=== PATIENT | female | born 1960 | race African-American/Black ===

== ENCOUNTER 2022-04-15 00:09 | Inpatient (IN) | payer OTHER ==
[2022-04-15] MEDS ORDERED: Magnesium 2 GM/50 ML BAG (IN WATER) ONE (00:31)
[2022-04-15] MEDS ORDERED: Nitroglycerin 50 MG/250 ML BOT 0 ML ONE (00:31)
[2022-04-15] MEDS ORDERED: Azithromycin 500 MG VIAL ONE (00:31)
[2022-04-15] MEDS ORDERED: cefTRIAXone\\ROCEPHIN 1 GM VIAL ONE (00:31)
[2022-04-15] MEDS ORDERED: Aspirin Chewable 81 MG TAB ONE (00:31)
[2022-04-15 00:47] LABS: #Basophils 0.1 thou/uL (0.0-0.2); #Eosinphils 0.2 thou/uL (0.0-0.7); #Lymphocytes 2.3 thou/uL (1.20-3.40); #Monocytes 0.7 thou/uL (0.11-0.59); #Neutrophils 5.6 thou/uL (1.40-6.50); %Basophils 0.6 % (0.0-1.0); %Eosinophils 1.9 % (0.0-10.0); %Lymphocytes 25.8 % (21.0-51.0); %Monocytes 7.7 % (0.0-10.0); Hemoglobin 14.9 g/dL (12.0-16.0); Mean Corpuscular HGB CONC 33.3 g/dL (32.0-36.0); Mean Corpuscular Hemoglobin 35.9 pg (27.0-31.0); Mean Platelet Volume 10.3 fL (7.4-10.4); Platelet Count 144 thou/uL (130-400); RBC Distribution Width 12.4 % (11.5-14.5); Red Blood Cell (RBC) Count 4.16 mill/uL (4.20-5.40); White Blood Cell (WBC) Count 8.7 thou/uL (4.8-10.8)
[2022-04-15 01:04] LABS: ALT (SGPT) 9 U/L (8-55); AST (SGOT) 26 U/L (5-34); Albumin 3.9 g/dL (3.4-4.8); Alkaline Phosphatase 95 U/L (40-110); Anion Gap 18 mmol/L (10-20); BUN (Urea Nitrogen) 26 mg/dL (9.8-20.1); CK (CPK) 115 U/L (29-168); Calc. Creatinine Clearance 0 mL/min (70-130); Carbon Dioxide 17 mmol/L (23-31); Chloride 101 mmol/L (98-107); Estimated GFR 25; Globulin 4.2 g/dL (2.4-3.5); Glucose 141 mg/dL (80-115); Lipase 44 U/L (8-78); Potassium 3.9 mmol/L (3.5-5.1); Protein, Total 8.1 g/dL (5.8-8.1); Sodium 132 mmol/L (136-145)
[2022-04-15 01:15] LABS: Bacteria/HPF None Seen HPF (None Seen); Bilirubin Negative (Negative); Blood, Urine 1+ (Negative); Clarity Clear (Clear); Glucose, Urine (Dipstick) Normal (Negative); Ketone, Urine Negative (Negative); Leukocyte Negative Leu/uL (Negative); Nitrite Negative (Negative); Protein, Urine (Dipstick) 300 mg/dL (Neg-Trace); RBC/HPF 0-3 HPF (0-3); Squamous Epithelial None Seen HPF (0-3); Urobilinogen Normal mg/dL (Less than 2); WBC/HPF 0-3 HPF (0-3); pH, Urine 6.5 (5.0-9.0)
[2022-04-15 01:18] LABS: Bilirubin, Total 0.5 mg/dL (0.2-1.2)
[2022-04-15 01:26] LABS: CKMB 2.8 ng/mL (0-6.6)
[2022-04-15 02:22] LABS: SARS-CoV-2 NAA Rapid Test Not Detected (NotDetected)
[2022-04-15] MEDS ORDERED: HYDROcodone/Acetaminophen 5/325 mg Tablet PO PRN (02:22)
[2022-04-15] MEDS ORDERED: Nitroglycerin 0.4 MG TAB (25 Tab Bottle) SL PRN (02:22)
[2022-04-15] MEDS ORDERED: Zolpidem Tartrate 5 MG TAB PO PRN (02:22)
[2022-04-15] MEDS ORDERED: Acetaminophen 325 MG TAB PO PRN (02:22)
[2022-04-15] MEDS ORDERED: Bisacodyl 5 MG TAB PO PRN (02:22)
[2022-04-15] MEDS ORDERED: Ondansetron PF 4 MG/2 ML Vial IVP PRN (02:22)
[2022-04-15] MEDS ORDERED: Morphine 2 MG/ML VIAL SLOW IVP PRN (02:27)
[2022-04-15] MEDS ORDERED: hydrALAZINE 20 MG/ML VIAL SLOW IVP PRN (02:27)
[2022-04-15] MEDS ORDERED: Aspirin Chewable 81 MG TAB PO SCH (02:30)
[2022-04-15 03:13] VITALS: BMI 34.9
[2022-04-15] MEDS: Furosemide 40 MG/4 ML VIAL IVP SCH ×2 (03:30→20:00)
[2022-04-15 03:39] LABS: #Basophils 0.1 thou/uL (0.0-0.2); #Lymphocytes 0.6 thou/uL (1.20-3.40); #Monocytes 0.2 thou/uL (0.11-0.59); #Neutrophils 7.8 thou/uL (1.40-6.50); %Basophils 0.6 % (0.0-1.0); %Eosinophils 0.3 % (0.0-10.0); %Lymphocytes 6.7 % (21.0-51.0); %Neutrophils 90.4 % (42.0-75.0); Hemoglobin 13.6 g/dL (12.0-16.0); Mean Corpuscular HGB CONC 33.1 g/dL (32.0-36.0); Mean Corpuscular Hemoglobin 35.7 pg (27.0-31.0); Mean Platelet Volume 10.3 fL (7.4-10.4); Platelet Count 125 thou/uL (130-400); RBC Distribution Width 12.3 % (11.5-14.5); Red Blood Cell (RBC) Count 3.82 mill/uL (4.20-5.40); White Blood Cell (WBC) Count 8.6 thou/uL (4.8-10.8)
[2022-04-15 03:53] LABS: Lactic Acid 1.5 mmol/L (0.5-2.2)
[2022-04-15 03:58] LABS: ALT (SGPT) 7 U/L (8-55); AST (SGOT) 21 U/L (5-34); Albumin 3.5 g/dL (3.4-4.8); Alkaline Phosphatase 84 U/L (40-110); Anion Gap 16 mmol/L (10-20); BUN (Urea Nitrogen) 26 mg/dL (9.8-20.1); Bilirubin, Total 0.4 mg/dL (0.2-1.2); Calc. Creatinine Clearance 38 mL/min (70-130); Calcium 8.8 mg/dL (7.8-10.44); Carbon Dioxide 19 mmol/L (23-31); Chloride 104 mmol/L (98-107); Estimated GFR 25; Globulin 3.7 g/dL (2.4-3.5); Glucose 155 mg/dL (80-115); Magnesium 2.6 mg/dL (1.6-2.6); Potassium 4.5 mmol/L (3.5-5.1); Protein, Total 7.2 g/dL (5.8-8.1); Sodium 134 mmol/L (136-145)
[2022-04-15 04:01] LABS: Troponin I 0.161 ng/mL (< 0.028)
[2022-04-15] MEDS ORDERED: Nitroglycerin 2% Ointment 1 INCH/1 GM Packet TOP SCH (06:00)
[2022-04-15 06:05] LABS: Creatinine, Urine 24.8 mg/dL (47-110)
[2022-04-15 07:00] LABS: Troponin I 0.162 ng/mL (< 0.028)
[2022-04-15] MEDS ORDERED: Clopidogrel Bisulfate 75 MG TAB PO SCH (09:00)
[2022-04-15] MEDS ORDERED: Enoxaparin Sodium 40 MG/0.4 ML SYRINGE SC SCH (09:00)
[2022-04-15] MEDS ORDERED: Amlodipine 5 MG TAB PO SCH (09:00)
[2022-04-15] MEDS: Famotidine 20 MG TAB PO SCH (09:27)
[2022-04-15 10:21] LABS: HBSAg Index 0.26 S/CO (0-0.99); Hep B Surf Ag Non-Reactive S/CO (NonReactive); Hep C IgG Ab Non-Reactive (NonReactive); Hep C Index 0.11 S/CO (0-0.79)
[2022-04-15] MEDS ORDERED: Communication Order-Pharmacy FS SCH (13:15)
[2022-04-15] MEDS: hydrALAZINE 25 MG TAB PO SCH ×2 (14:26→20:37)
[2022-04-15] MEDS: Isosorbide Mononitrate 20 MG TAB PO SCH ×2 (14:27→20:37)
[2022-04-15] MEDS: Atorvastatin Calcium 40 MG TAB PO SCH (20:37)
[2022-04-16] MEDS ORDERED: cefTRIAXone\\ROCEPHIN 1 GM in Sodium Chloride 0.9% 100 ML IVPB SCH (01:00)
[2022-04-16] MEDS: Furosemide 40 MG/4 ML VIAL IVP SCH (01:57)
[2022-04-16 04:17] LABS: Anion Gap 12 mmol/L (10-20); BUN (Urea Nitrogen) 36 mg/dL (9.8-20.1); Calc. Creatinine Clearance 33 mL/min (70-130); Calcium 8.2 mg/dL (7.8-10.44); Carbon Dioxide 22 mmol/L (23-31); Cardiac Risk 2.7 (Less than 4.5); Chloride 104 mmol/L (98-107); Cholesterol 187 mg/dl (< 200 Desired); Estimated GFR 21; Glucose 101 mg/dL (80-115); HDL Cholesterol 70 mg/dL (>60 Neg Risk); LDL Cholesterol, Calculated 100 mg/dL; Sodium 134 mmol/L (136-145); Triglycerides 84 mg/dL (Less than 150)
[2022-04-16] MEDS: Sodium Chloride 0.9% 1,000 ML IV SCH ×2 (05:55→16:41)
[2022-04-16] MEDS ORDERED: Amlodipine 10 MG TAB PO SCH (09:00)
[2022-04-16] MEDS: Aspirin 81 mg Enteric Coated Tablet PO SCH (09:23)
[2022-04-16] MEDS: Isosorbide Mononitrate 20 MG TAB PO SCH ×3 (09:24→20:22)
[2022-04-16] MEDS: Carvedilol 6.25 MG TAB PO SCH ×2 (09:24→16:42)
[2022-04-16] MEDS: Famotidine 20 MG TAB PO SCH (09:24)
[2022-04-16] MEDS: hydrALAZINE 25 MG TAB PO SCH ×3 (09:24→20:22)
[2022-04-16 12:48] LABS: ANA Symphony (Qualitative) Negative (Negative); ANA Symphony (Quantitative) 0.4 Ratio (< 0.7 Negative)
[2022-04-16] MEDS: Sodium Bicarbonate Tab 325 MG TAB PO SCH ×2 (16:42→20:22)
[2022-04-16] MEDS: Atorvastatin Calcium 40 MG TAB PO SCH (20:22)
[2022-04-17 05:28] LABS: Anion Gap 13 mmol/L (10-20); BUN (Urea Nitrogen) 38 mg/dL (9.8-20.1); Calc. Creatinine Clearance 30 mL/min (70-130); Calcium 8.1 mg/dL (7.8-10.44); Carbon Dioxide 21 mmol/L (23-31); Chloride 104 mmol/L (98-107); Estimated GFR 19; Glucose 107 mg/dL (80-115); Potassium 3.9 mmol/L (3.5-5.1); Sodium 134 mmol/L (136-145)
[2022-04-17] MEDS: Carvedilol 6.25 MG TAB PO SCH (08:11)
[2022-04-17] MEDS: Sodium Bicarbonate Tab 325 MG TAB PO SCH (08:12)
[2022-04-17] MEDS: hydrALAZINE 25 MG TAB PO SCH (08:12)
[2022-04-17] MEDS: Isosorbide Mononitrate 20 MG TAB PO SCH (08:12)
[2022-04-17] MEDS: Aspirin 81 mg Enteric Coated Tablet PO SCH (08:12)
[2022-04-17] MEDS: Famotidine 20 MG TAB PO SCH (08:13)
[2022-04-17] MEDS ORDERED: Furosemide 20 MG TAB PO SCH (09:00)
[2022-04-17 11:39] VITALS: BP 129/66; TEMP 98.1
[2022-04-17] MEDS ORDERED: Carvedilol 6.25 MG TAB PO SCH (15:00)
[2022-04-17] MEDS ORDERED: hydrALAZINE 25 MG TAB PO SCH (15:00)
[2022-04-17 16:13] LABS: IFE-Serum Interpretation Note: (.); IgA - Total IgA (Sendout) 518 mg/dL (87-352); Immunoglobulin - G (Sendout) 1317 mg/dL (586-1602); Immunoglobulin - M (Sendout) 100 mg/dL (26-217)
[2022-04-18] MEDS ORDERED: FLU VACC QS2022-23(6MOS UP)/PF 60 MCG/0.5 ML SYRINGE IM ONE (03:30)
[2022-04-18 13:14] LABS: Cytoplasmic (C-ANCA) <1:20 titer (Neg:<1:20); Myeloperoxidase AutoAbs <0.2 units (0.0-0.9); Perinuclear (P-ANCA) <1:20 titer (Neg:<1:20); Proteinase-3 AutoAbs Less than 0.2 units (0.0-0.9)
== END 2022-04-17 13:50 | disposition home or self-care (01) | DRG 291 ==
LOC: ERS 00:09 → IMCU/EMU 01:42 → 2SW 04-16 18:42
PROVIDERS: ADMIT Internal Medicine; ATTEND Internal Medicine
PROC: 5A09357 Assistance with Respiratory Ventilation, Less than 24 Consecutive Hours, Continuous Positive Airway Pressure (ICD-10-PCS; principal; 2022-04-15)
DX: I13.0 Hypertensive heart and chronic kidney disease with heart failure and stage 1 through stage 4 chronic kidney disease, or unspecified chronic kidney disease (principal); I50.23 Acute on chronic systolic (congestive) heart failure; J96.01 Acute respiratory failure with hypoxia; I16.1 Hypertensive emergency; E87.1 Hypo-osmolality and hyponatremia; N17.9 Acute kidney failure, unspecified; I42.9 Cardiomyopathy, unspecified; Z20.822 Contact with and (suspected) exposure to COVID-19; R80.9 Proteinuria, unspecified; N32.89 Other specified disorders of bladder; M10.9 Gout, unspecified; F10.10 Alcohol abuse, uncomplicated; N18.30 Chronic kidney disease, stage 3 unspecified
CPT/HCPCS: 36415; 71045; 71046; 76770; 80048; 80053; 80061; 81003; 81015; 82550; 82553; 82570; 83516; 83605; 83690; 83735; 83880; 84300; 84443; 84484; 85025; 86037; 86038; 86225; 86334; 86335; 86803; 87040; 87086; 87340; 93005; 93306; 93798; 94640; 94660; 94760; 96374; 96375; J0456; J0696; J1650; J1940; J3475; J7620

== ENCOUNTER 2022-05-19 14:16 | Inpatient (IN) | payer OTHER ==
[2022-05-19 16:09] VITALS: BMI 20.9
[2022-05-19] MEDS ORDERED: Acetaminophen 325 MG TAB PO PRN (16:12)
[2022-05-19] MEDS ORDERED: HYDROcodone/Acetaminophen 5/325 mg Tablet PO PRN (16:12)
[2022-05-19] MEDS ORDERED: Guaifenesin DM 100-10/5 ML UDCUP PO PRN (16:12)
[2022-05-19] MEDS ORDERED: Furosemide 40 MG/4 ML VIAL SLOW IVP SCH (17:15)
[2022-05-19] MEDS: Sodium Bicarbonate Tab 325 MG TAB PO SCH (19:23)
[2022-05-19] MEDS: hydrALAZINE 25 MG TAB PO SCH (19:23)
[2022-05-19] MEDS: Carvedilol 6.25 MG TAB PO SCH (19:23)
[2022-05-19] MEDS: Isosorbide Mononitrate 20 MG TAB PO SCH (19:23)
[2022-05-19] MEDS: Heparin 5,000 UNITS/ML VIAL SC SCH (19:27)
[2022-05-19] MEDS ORDERED: Atorvastatin Calcium 40 MG TAB PO SCH (21:00)
[2022-05-20 04:40] LABS: Hemoglobin 11.7 g/dL (12.0-16.0); Mean Corpuscular HGB CONC 34.2 g/dL (32.0-36.0); Mean Corpuscular Hemoglobin 35.2 pg (27.0-31.0); Mean Platelet Volume 9.8 fL (7.4-10.4); Platelet Count 119 thou/uL (130-400); RBC Distribution Width 11.7 % (11.5-14.5); Red Blood Cell (RBC) Count 3.31 mill/uL (4.20-5.40); White Blood Cell (WBC) Count 3.9 thou/uL (4.8-10.8)
[2022-05-20 04:56] LABS: Band 2 % (5-11); Eosinophils 2 % (0-10); Lymphocytes 45 % (21-51); MDiff Complete? YES; Monocytes 14 % (0-10); Neutrophil 37 % (42-75); Platelet Morphology Comment Appears Decreased
[2022-05-20 05:00] LABS: Anion Gap 15 mmol/L (10-20); BUN (Urea Nitrogen) 34 mg/dL (9.8-20.1); Calc. Creatinine Clearance 17 mL/min (70-130); Carbon Dioxide 22 mmol/L (23-31); Chloride 104 mmol/L (98-107); Estimated GFR 18; Glucose 90 mg/dL (80-115); Magnesium 1.7 mg/dL (1.6-2.6); Potassium 3.7 mmol/L (3.5-5.1); Sodium 137 mmol/L (136-145)
[2022-05-20] MEDS: Furosemide 20 MG/2 ML VIAL SLOW IVP SCH ×2 (06:28→15:30)
[2022-05-20] MEDS ORDERED: Folic Acid 1 MG TAB PO SCH (09:00)
[2022-05-20] MEDS ORDERED: Enoxaparin Sodium 30 MG/0.3 ML SYRINGE SC SCH (09:00)
[2022-05-20] MEDS ORDERED: Aspirin 81 mg Enteric Coated Tablet PO SCH (09:00)
[2022-05-20] MEDS ORDERED: VITAMIN A 2400 MCG PO SCH (09:00)
[2022-05-20] MEDS: Benzonatate 100 MG CAP PO SCH ×2 (09:29→15:30)
[2022-05-20] MEDS: hydrALAZINE 25 MG TAB PO SCH ×2 (09:29→15:30)
[2022-05-20] MEDS: Sodium Bicarbonate Tab 325 MG TAB PO SCH ×2 (09:29→15:30)
[2022-05-20] MEDS: Isosorbide Mononitrate 20 MG TAB PO SCH ×2 (09:29→15:30)
[2022-05-20] MEDS: Carvedilol 6.25 MG TAB PO SCH (09:29)
[2022-05-20] MEDS: Heparin 5,000 UNITS/ML VIAL SC SCH (09:30)
[2022-05-20 16:21] VITALS: BP 145/78; TEMP 97.3
[2022-05-21] MEDS ORDERED: Furosemide 40 MG TAB PO SCH (07:30)
== END 2022-05-20 18:41 | disposition home or self-care (01) | DRG 291 ==
LOC: 2NO 14:16
PROVIDERS: ADMIT Hospitalist; ATTEND Internal Medicine
DX: I11.0 Hypertensive heart disease with heart failure (principal); Z20.822 Contact with and (suspected) exposure to COVID-19; I50.23 Acute on chronic systolic (congestive) heart failure; J96.01 Acute respiratory failure with hypoxia; N17.9 Acute kidney failure, unspecified; N18.4 Chronic kidney disease, stage 4 (severe); E78.5 Hyperlipidemia, unspecified; I42.8 Other cardiomyopathies; Z79.899 Other long term (current) drug therapy; Z79.82 Long term (current) use of aspirin; Z98.51 Tubal ligation status
CPT/HCPCS: 36415; 80048; 83735; 83880; 85025; 93798; J1644; J1940; U0003; U0005